=== PATIENT | male | born 1985 | race Caucasian/White ===

== ENCOUNTER 2017-10-22 04:22 | Emergency (ER) | payer BC ==
[2017-10-22] MEDS ORDERED: Ondansetron 4 MG Tab.DIS PO ONE (04:23)
[2017-10-22] MEDS ORDERED: Metoclopramide 10 MG/2 ML SDV IVPUSH ONE (04:35)
[2017-10-22] MEDS ORDERED: Sodium Chloride 0.9% 1,000 ML IV ONE ×2 (04:35→05:23)
[2017-10-22 05:03] LABS: ANION GAP 17.8; CHLORIDE,CL 103 mmol/L (101-111); SODIUM,NA 139 mmol/L (135-145)
[2017-10-22] MEDS ORDERED: Ondansetron 4 MG Tab.DIS ONE (05:27)
--- NOTE | 2017-10-22 05:43 | EDM.PDOC ---
ED HPI GENERAL MEDICAL PROBLEM - General Chief Complaint: Gastrointestinal Problem Stated Complaint: THROWING UP - PRIVATE VEHICLE Time Seen by Provider: 10/22/17 04:40 Source of Information: Reports: Patient History Limitations: Reports: No Limitations - History of Present Illness INITIAL COMMENTS - FREE TEXT/NARRATIVE: C/O nausea vomiting and diarrhea since 9pm yesterday, Estimates vomiting 50 times. Unable to keep anything down. Muscles cramping. Notes sx similar to child he had been around this week. Has been with lots of family for and has had lots of different foods. Lower Abdomen Pain Score (Numeric/FACES): 5 - Related Data Allergies Allergy/AdvReac Type Severity Reaction Status Date / Time No Known Allergies Allergy Verified 10/22/17 04:28 Home Meds: Home Meds Dicyclomine [Bentyl] 10 mg PO QIDACANDBED 10/22/17 [History] Past Medical History Gastrointestinal History: Reports: Irritable Bowel Syndrome Social & Family History - Tobacco Use Smoking Status *Q: Unknown Ever Smoked - Caffeine Use Caffeine Use: Reports: Coffee, Soda - Alcohol Use Date of Last Drink: 10/21/17 Time of Last Drink: 21:00 - Recreational Drug Use Recreational Drug Use: No ED ROS GENERAL - Review of Systems Review Of Systems: ROS reveals no pertinent complaints other than HPI. ED EXAM, GI/ABD - Physical Exam Exam: See Below Exam Limited By: No Limitations General Appearance: Alert, Anxious, Mild Distress Eyes: Bilateral: EOMI Ears: Normal External Exam Nose: Normal Inspection Throat/Mouth: Normal Inspection Head: Atraumatic, Normocephalic Neck: Normal Inspection Respiratory/Chest: No Respiratory Distress, Lungs Clear, Normal Breath Sounds Cardiovascular: Normal Peripheral Pulses, Regular Rate, Rhythm, Tachycardia GI/Abdominal Exam: Soft, Tender (epigastric) Back Exam: Normal Inspection Extremities: Normal Inspection Neurological: Alert, Oriented, Normal Cognition Psychiatric: Normal Affect Skin Exam: Warm, Dry, Intact, Normal Color Course - Vital Signs Last Recorded V/S: Last Vital Signs Temp 98.2 F 10/22/17 04:39 Pulse 102 H 10/22/17 04:39 Resp 20 10/22/17 04:39 BP 141/74 H 10/22/17 04:39 Pulse Ox 100 10/22/17 04:39 - Orders/Labs/Meds Orders: Active Orders 24 hr Category Date Time Status HEPATITIS PANEL, ACUTE [REF] Stat Lab 10/22/17 04:35 Received UA W/MICROSCOPIC [URIN] Stat Lab 10/22/17 04:40 Uncollected Sodium Chloride 0.9% [Normal Saline] 1,000 ml Med 10/22/17 05:23 Active IV .BOLUS Medication Orders Sodium Chloride (Normal Saline) 1,000 mls @ 999 mls/hr IV .BOLUS ONE Stop: 10/22/17 06:23 Last Admin: 10/22/17 05:33 Dose: 999 mls/hr Labs: Laboratory Tests 10/22/17 10/22/17 Range/Units 04:35 04:35 WBC 12.0 H (5.0-10.0) 10^3/uL RBC 5.45 (4.6-6.2) 10^6/uL Hgb 16.7 (14.0-18.0) g/dL Hct 46.4 (40.0-54.0) % MCV 85.1 (80-100) fL MCH 30.6 (27.0-34.0) pg MCHC 36.0 H (33.0-35.0) g/dL Plt Count 195 (150-450) 10^3/uL Neut % (Auto) 91.0 H (42.2-75.2) % Lymph % (Auto) 2.7 L (20.5-50.1) % Alexander % (Auto) 6.1 (2-8) % Eos % (Auto) 0.1 L (1.0-3.0) % Baso % (Auto) 0.1 (0.0-1.0) % Sodium 139 (135-145) mmol/L Potassium 3.8 (3.6-5.0) mmol/L Chloride 103 (101-111) mmol/L Carbon Dioxide 22.0 (21.0-31.0) mmol/L Anion Gap 17.8 BUN 15 (7-18) mg/dL Creatinine 1.2 (0.6-1.3) mg/dL Est Cr Clr Drug Dosing 98.03 mL/min Estimated GFR (MDRD) > 60 BUN/Creatinine Ratio 12.50 Glucose 145 H (74-105) mg/dL Calcium 9.6 (8.4-10.2) mg/dl Total Bilirubin 2.1 H (0.2-1.0) mg/dL AST 46 H (10-42) IU/L ALT 84 H (10-60) IU/L Alkaline Phosphatase 68 (42-121) IU/L Total Protein 7.7 (6.7-8.2) g/dl Albumin 4.8 (3.2-5.5) g/dl Globulin 2.9 Albumin/Globulin Ratio 1.66 Amylase 55 (28-100) U/L Lipase 16 L (22-51) U/L Meds: Medications Generic Name Dose Route Start Last Admin Trade Name Freq PRN Reason Stop Dose Admin Sodium Chloride 1,000 mls @ 999 mls/hr 10/22/17 05:23 10/22/17 05:33 Normal Saline IV 10/22/17 06:23 999 mls/hr .BOLUS ONE Administration Discontinued Medications Generic Name Dose Route Start Last Admin Trade Name Freq PRN Reason Stop Dose Admin Sodium Chloride 1,000 mls @ 999 mls/hr 10/22/17 04:35 10/22/17 04:44 Normal Saline IV 10/22/17 05:35 999 mls/hr .BOLUS ONE Administration Metoclopramide HCl 10 mg 10/22/17 04:35 10/22/17 04:45 Reglan IVPUSH 10/22/17 04:36 10 mg ONETIME ONE Administration Ondansetron HCl Confirm 10/22/17 05:27 10/22/17 05:33 Zofran Odt Administered 10/22/17 05:28 Not Given Dose 4 mg .ROUTE .STK-MED ONE - Re-Assessments/Exams Free Text/Narrative Re-Assessment/Exam: 10/22/17 06:04 Nausea resolved, resting. Discussed elevated LFT's, recommended further testing to include hepatitis panal. Patient notes some previous elevation in past . States he will follow up with PCP in [place] on Tuesday to have rechecked. Departure - Departure Time of Disposition: 06:03 Disposition: Home, Self-Care 01 Condition: Good Clinical Impression: Gastroenteritis, Elevated liver function tests - Discharge Information Instructions: Dehydration, Adult, [id number] Forms: ED Department Discharge Additional Instructions: gradually start clear liquids advance diet as tolerated zofran 4mg ODT one every 4 hours as needed for nausea and vomiting #6 Follow up in clinic on Tuesday to recheck liver studies Follow up sooner if symptoms worsen No alcohol or tylenol Until rechecked in clinic - My Orders Last 24 Hours: My Active Orders 10/22/17 04:35 HEPATITIS PANEL, ACUTE [REF] Stat 10/22/17 04:40 UA W/MICROSCOPIC [URIN] Stat 10/22/17 05:23 Sodium Chloride 0.9% [Normal Saline] 1,000 ml IV .BOLUS - Assessment/Plan Last 24 Hours: My Active Orders 10/22/17 04:35 HEPATITIS PANEL, ACUTE [REF] Stat 10/22/17 04:40 UA W/MICROSCOPIC [URIN] Stat 10/22/17 05:23 Sodium Chloride 0.9% [Normal Saline] 1,000 ml IV .BOLUS
== END 2017-10-22 06:26 | disposition home or self-care (01) ==
LOC: DL.ED 04:22
DX: K52.9 Noninfective gastroenteritis and colitis, unspecified (principal); R74.8 Abnormal levels of other serum enzymes
CPT/HCPCS: 36415; 80053; 82150; 83690; 85025; 96361; 96374; 99284; J2765; J7030; A9270-GY